=== PATIENT | male | born 1980 | race Caucasian/White ===

== ENCOUNTER 2016-07-07 15:56 | Emergency (ER) | payer BC, MEDICAID ==
[~2016-07-07] VITALS: Ht 172.7 cm; Wt 95.3 kg
[2016-07-07 16:12] VITALS: BP 133/89
--- NOTE | 2016-07-07 17:10 | NUR ---
PATIENT AMBULATED TO BED 5 AT THIS TIME.
--- NOTE | 2016-07-07 17:30 | NUR ---
PATIENT PRESENTS TO ED WITH MID LOW BACK PAIN X3 DAYS. DENIES TRAUMA; DENIES N/V/D; SKIN IS PINK/WARM/DRY; AAOX4 WITH EVEN AND STEADY GAIT; LUNGS CLEAR BL; HR EVEN AND REGULAR; PT DENIES ANY FEVER, CP, SOB, OR COUGH AT THIS TIME; PATIENT STATES PAIN OF 7/10 AT THIS TIME; VSS; PATIENT POSITIONED FOR COMFORT; HOB ELEVATED; BEDRAILS UP X2; BED DOWN. ER MD MADE AWARE OF PT STATUS.
[2016-07-07] MEDS ORDERED: KETOROLAC 60 MG/2 ML VIAL IM ONE (18:50)
[2016-07-07] MEDS ORDERED: DIAZEPAM PFS 10 MG/2 ML SYR IM ONE (18:50)
--- NOTE | 2016-07-07 19:08 | NUR ---
PAIN MEDICATIONS GIVEN TO ALER AWAKE ORIENTED PT, TOLERATED WELL
--- NOTE | 2016-07-07 19:20 | NUR ---
REPORT GIVEN TO BRANDON DEJESUS
--- NOTE | 2016-07-07 19:22 | NUR ---
REPORT RECEIVED FROM PILAR TAYLOR. ASSUMED CARE OF THE PT.
--- NOTE | 2016-07-07 20:25 | NUR ---
Patient discharged with v/s stable. Written and verbal after care instructions given and explained BY DR MOTA. Patient alert, oriented and verbalized understanding of instructions. Ambulatory with steady gait. All questions addressed prior to discharge. ID band removed. Patient advised to follow up with PMD. Rx of VALIUM, MOTRIN, NORCO given. Patient educated on indication of medication including possible reaction and side effects. Opportunity to ask questions provided and answered.
[2016-07-07 20:26] VITALS: BP 144/83
== END 2016-07-07 20:25 | disposition home or self-care (01) ==
LOC: MED 15:56
DX: M54.5 Low back pain (principal)
CPT/HCPCS: 81002; 96372; 99284; J1885; J3360

== ENCOUNTER 2019-04-19 20:05 | Emergency (ER) | payer BC, MEDICAID ==
[~2019-04-19] VITALS: Ht 172.7 cm; Wt 93.4 kg
[2019-04-19 20:24] VITALS: BP 167/80
--- NOTE | 2019-04-19 20:31 | NUR ---
PT AMBULATED TO LOBBY WITH TO A/W BED
--- NOTE | 2019-04-19 21:10 | NUR ---
PATIENT ASSESSMENT COMPLETED. PATIENT SITTING UP IN CHAIR, NO NEEDS ADDRESSED.
[2019-04-19 21:35] VITALS: BP 152/75
--- NOTE | 2019-04-19 21:35 | NUR ---
Patient discharged with v/s stable. Written and verbal after care instructions given and explained. Patient alert, oriented and verbalized understanding of instructions. Ambulatory with steady gait. All questions addressed prior to discharge. ID band removed. Patient advised to follow up with PMD. Rx of ACETAMINOPHEN, AMOXICILLIN, PREDNISONE given. Patient educated on indication of medication including possible reaction and side effects. Opportunity to ask questions provided and answered.
== END 2019-04-19 21:35 | disposition home or self-care (01) ==
LOC: MED 20:05
DX: J02.9 Acute pharyngitis, unspecified (principal)
CPT/HCPCS: 99283